=== PATIENT | male | born 1955 | race Caucasian/White ===

== ENCOUNTER 2020-10-06 06:34 | Emergency (ER) | payer BC ==
[2020-10-06 06:50] VITALS: BP 163/99; PULSE 91
--- NOTE | 2020-10-06 06:58 | EDM.PDOC ---
ED HPI GENERAL MEDICAL PROBLEM - General Chief Complaint: Abdominal Pain Stated Complaint: ABDOMINAL PAIN Time Seen by Provider: 10/06/20 06:47 Source of Information: Reports: Patient History Limitations: Reports: No Limitations - History of Present Illness INITIAL COMMENTS - FREE TEXT/NARRATIVE: 65-year-old male presents to the ED with recurrent right upper quadrant epigastric abdominal pain off and on for the last 4-1/2 days. Patient was told 15 to 18 years ago that he did have a gallstone in his gallbladder but he is never had any problems with it. Pain is worsened by eating and drinking. No associated nausea vomiting fever or chills. He relieves the pain a bit by burping and belching. Does feel distended. He has not had a bowel movement either for the last 4-1/2 days. He believes this is secondary to poor oral intake of solids. Pain radiates underneath the right costal margin and around laterally over the rib cage but it does not go underneath his shoulder blade. Patient did have some Activia this am about 0500hrs. Patient does not drink alcohol or smoke. No previous abdominal surgery. Onset: Gradual Onset Date: 10/03/20 (Has been having recurrent right upper quadrant epigastric abdominal pain off and on for the last 4-1/2 days worsened by eating) Duration: Day(s):, Getting Worse, Waxing/Waning Location: Reports: Abdomen (Epigastric discomfort. No associated nausea or vomiting.) Quality: Reports: Other (Deep aching pain occasional sharp and stabbing with eating) Severity: Moderate (right upper quadrant of the abdomen current pain is a 2 out of 10.) Improves with: Reports: None Worsens with: Reports: Eating (Drinking fluids.) Context: Denies: Activity, Exercise, Lifting, Sick Contact, Trauma, Other Associated Symptoms: Reports: Loss of Appetite. 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 (see below) (None.) Upper Abdomen Pain Score (Numeric/FACES): 3 - Related Data Allergies Allergy/AdvReac Type Severity Reaction Status Date / Time No Known Allergies Allergy Verified 10/06/20 06:49 Home Meds: Home Meds Aspirin [Farheen Chewable Aspirin] 81 mg PO DAILY 04/28/14 [History] Metoprolol Tartrate [Lopressor] 25 mg PO DAILY 04/28/14 [History] Omeprazole 20 mg PO DAILY 04/28/14 [History] atorvaSTATin Calcium [Atorvastatin Calcium] 40 mg PO DAILY 04/28/14 [History] levoFLOXacin [Levaquin] 500 mg PO DAILY #10 tab 10/06/20 [Rx] Past Medical History Cardiovascular History: Reports: High Cholesterol, Stents Gastrointestinal History: Reports: Other (See Below) Other Gastrointestinal History: gallbladder stone Genitourinary History: Reports: Other (See Below) - Past Surgical History HEENT Surgical History: Reports: Eye Surgery, LASIK Male Surgical History: Reports: Circumcision Social & Family History - Tobacco Use Tobacco Use Status *Q: Current Every Day Tobacco User Years of Tobacco use: 1 Packs/Tins Daily: 1 Used Tobacco, but Quit: Yes Month/Year Tobacco Last Used: 12 Tobacco Use Comment: pt quit for 12 years and started smoking again for 1 year - Caffeine Use Caffeine Use: Reports: Coffee - Recreational Drug Use Recreational Drug Use: No - Living Situation & Occupation Living situation: Reports: Occupation: Employed ED ROS GENERAL - Review of Systems Review Of Systems: See Below Constitutional: Reports: Decreased Appetite. Denies: Fever, Chills, Malaise, Weakness, Fatigue, Weight Loss HEENT: Reports: Glasses Respiratory: Reports: Shortness of Breath (Taking a deep breath makes the pain worse.) Cardiovascular: Reports: No Symptoms, Other (Known coronary artery disease with stent placement.) Endocrine: Reports: No Symptoms GI/Abdominal: Reports: Abdominal Pain (See history of present illness), Constipation (Problem for the last 4-1/2 days.), Decreased Appetite, Distension (Feels bloated and mildly distended.). Denies: Diarrhea, Difficulty Swallowing, Nausea, Vomiting : Reports: Frequency, Other (Nocturia x2) Musculoskeletal: Reports: Back Pain, Joint Pain Skin: Reports: No Symptoms (Occasional pain knees hips and neck .) Neurological: Reports: No Symptoms Psychiatric: Reports: No Symptoms Hematologic/Lymphatic: Reports: No Symptoms Immunologic: Reports: No Symptoms ED EXAM, GI/ABD - Physical Exam Exam: See Below Exam Limited By: No Limitations General Appearance: Alert, WD/WN, No Apparent Distress, Other (Temperature is 36.6 degrees heart rate 91 is sinus respiratory is 18 with O2 sats of 98% room air. BP mildly elevated 1 6399) Eyes: Bilateral: Normal Appearance (No scleral icterus or blepharal pallor.) Throat/Mouth: Normal Inspection, Normal Lips, Normal Oropharynx Head: Atraumatic, Normocephalic Neck: Normal Inspection, Supple, Non-Tender, Full Range of Motion. No: Carotid Bruit, Lymphadenopathy (L), Lymphadenopathy (R), Thyromegaly Respiratory/Chest: No Respiratory Distress, Lungs Clear, Normal Breath Sounds, No Accessory Muscle Use Cardiovascular: Normal Peripheral Pulses, Regular Rate, Rhythm, No Edema, No Gallop, No Murmur, No Rub GI/Abdominal Exam: Normal Bowel Sounds, Soft, No Organomegaly, No Abnormal Bruit, No Mass, Pelvis Stable, Tender (Tender spot in the left lower quadrant over the sigmoid colon which is well localized for site of pain. Query diverticulitis), Other (No surgical scars). No: Guarding (Right upper quadrant of the abdomen with a mildly positive Magana sign.), Rigid, Rebound (Male) Exam: No Hernia Back Exam: Normal Inspection, Full Range of Motion. No: CVA Tenderness (L), CVA Tenderness (R) Extremities: Normal Inspection, Normal Range of Motion, Non-Tender, No Pedal Edema Neurological: Alert, Oriented, CN II-XII Intact, Normal Cognition Psychiatric: Normal Affect, Normal Mood Skin Exam: Warm, Dry, Intact, Normal Color, No Rash Course - Vital Signs Last Recorded V/S: Last Vital Signs Temp 36.6 C 10/06/20 06:43 Pulse 91 10/06/20 06:43 Resp 18 10/06/20 06:43 BP 163/99 H 10/06/20 06:43 Pulse Ox 98 10/06/20 06:43 - Orders/Labs/Meds Orders: Active Orders 24 hr Category Date Time Status Abdomen 1V Flat [CR] Stat Exams 10/06/20 07:10 Taken Dextrose 5%-0.9% NaCl [Dextrose 5%-Normal Saline] 1,000 Med 10/06/20 07:15 Active ml IV ASDIRECTED Medication Orders Dextrose/Sodium Chloride (Dextrose 5%-Normal Saline) 1,000 mls @ 500 mls/hr IV ASDIRECTED STALIN Last Admin: 10/06/20 07:23 Dose: 500 mls/hr Documented by: [email or web address] Labs: Laboratory Tests 10/06/20 10/06/20 Range/Units 07:25 07:25 WBC 11.97 H (4.23-9.07) K/mm3 RBC 5.40 (4.63-6.08) M/mm3 Hgb 15.3 (13.7-17.5) gm/dl Hct 45.1 (40.1-51.0) % MCV 83.5 (79.0-92.2) fl MCH 28.3 (25.7-32.2) pg MCHC 33.9 (32.2-35.5) g/dl RDW Std Deviation 41.2 (35.1-43.9) fL Plt Count 223 (163-337) K/mm3 MPV 10.4 (9.4-12.3) fl Neut % (Auto) 81.3 H (34.0-67.9) % Lymph % (Auto) 10.5 L (21.8-53.1) % Runnels % (Auto) 6.9 (5.3-12.2) % Eos % (Auto) 0.8 (0.8-7.0) Baso % (Auto) 0.2 (0.1-1.2) % Neut # (Auto) 9.74 H (1.78-5.38) K/mm3 Lymph # (Auto) 1.26 L (1.32-3.57) K/mm3 Runnels # (Auto) 0.83 H (0.30-0.82) K/mm3 Eos # (Auto) 0.09 (0.04-0.54) K/mm3 Baso # (Auto) 0.02 (0.01-0.08) K/mm3 Sodium 139 (136-145) mEq/L Potassium 3.6 (3.5-5.1) mEq/L Chloride 100 (98-107) mEq/L Carbon Dioxide 27 (21-32) mEq/L Anion Gap 15.6 H (5-15) BUN 13 (7-18) mg/dL Creatinine 0.8 (0.7-1.3) mg/dL Est Cr Clr Drug Dosing TNP Estimated GFR (MDRD) > 60 (>60) mL/min BUN/Creatinine Ratio 16.3 (14-18) Glucose 107 (80-115) mg/dL Calcium 9.1 (8.5-10.1) mg/dL Total Bilirubin 0.4 (0.2-1.0) mg/dL GGT 21 (15-85) U/L AST 14 L (15-37) U/L ALT 24 (16-63) U/L Alkaline Phosphatase 65 (46-116) U/L C-Reactive Protein 10.9 H* (<1.0) mg/dL Total Protein 7.8 (6.4-8.2) g/dl Albumin 3.1 L (3.4-5.0) g/dl Globulin 4.7 gm/dL Albumin/Globulin Ratio 0.7 L (1-2) Lipase 45 L (73-393) U/L Meds: Medications Generic Name Dose Route Start Last Admin Trade Name Freq PRN Reason Stop Dose Admin Dextrose/Sodium Chloride 1,000 mls @ 500 mls/hr 10/06/20 07:15 10/06/20 07:23 Dextrose 5%-Normal Saline IV 500 mls/hr ASDIRECTED STALIN Administration Discontinued Medications Generic Name Dose Route Start Last Admin Trade Name Freq PRN Reason Stop Dose Admin Hyoscyamine 0.125 mg 10/06/20 07:09 10/06/20 07:23 Hyoscyamine 0.125 Mg Tab.Sl SL 10/06/20 07:10 0.125 mg ONETIME ONE Administration Magnesium Citrate 210 ml 10/06/20 07:46 10/06/20 07:58 Magnesium Citrate Solution 296 Ml Bottle PO 10/06/20 07:47 210 ml ONETIME ONE Administration - Radiology Interpretation Free Text/Narrative:: 65-year-old male presents to the ED due to recurrent right upper quadrant epigastric abdominal pain off and on for the last 4/2 days. It is worsened by eating and drinking fluids. Is also not had a bowel move for the last 4-1/2 days. Feels bloated. Pain is partially relieved by burping belching. Examination reveals bowel sounds to be infrequent throughout the abdomen. Mildly diffusely tympany to percussion. He is tender right upper quadrant of the abdomen with a mildly positive Magana sign. Plan IV D5 normal saline at 500 mils an hour Levsin 0.125 mg sublingual. Routine labs CBC, CMP, GGT, lipase and CRP to be done. One view the abdomen x-ray will be done. Since he ate 2 hours ago I will do a bedside ultrasound on his gallbladder. - Re-Assessments/Exams Free Text/Narrative Re-Assessment/Exam: 10/06/20 07:28 Bedside ultrasound reveals gallbladder to appear normal without thickened alejo and no stones or sludge evident within the gallbladder. Common bile duct also appeared to be within normal limits. 10/06/20 07:47 White count is slightly elevated at 11.97 does have a mild left shift with 81.3% neutrophils. Hemoglobin is 15.3 with hematocrit of 45.1 platelet counts 223,000. KUB has been completed and reveals increased stool throughout the entire right hemicolon and hepatic flexure of the transverse colon. Increase stool scattered throughout the transverse colon and the splenic flexure. The descending colon and rectal vault are empty of stool. There is increased air throughout the left hemicolon causing some degree of distention. There is no bowel obstruction. Plan he will be given magnesium citrate 7 ounces by mouth mixed with 6 to 7 ounces of Gatorade to provide bowel cleanse. 10/06/20 08:16 Sodium is 139 with a potassium of 3.6. Chloride is 100 with a bicarb of 27. Anion gap is mildly elevated at 15.6. BUN is 13 with a creatinine of 0.8 and a GFR greater than 60. Glucose 107. Calcium is 9.1. Bilirubin is 0.4 GGT is 21 AST is 14 ALT is 24 alkaline phosphatase is 65 C- reactive protein is 10.9 suggesting an underlying infective process. Total protein is 7.8 with an albumin fraction low at 3.1 lipase is 45. Therefore with elevated white count left shift and an elevated CRP it is suspect that he has early mild diverticulitis. Repeat abdominal examination definitely reveals no peritoneal signs. He remains afebrile as well. The plan will be to place him on Levaquin 500 mg once daily for the next 10 days to clear up any infection. Departure - Departure Time of Disposition: 08:21 Disposition: Home, Self-Care 01 Condition: Fair Clinical Impression: Constipation by delayed colonic transit Abdominal pain Qualifiers: Abdominal location: left lower quadrant Qualified Code(s): R10.32 - Left lower quadrant pain Diverticulitis large intestine Qualifiers: Diverticulitis bleeding: without bleeding Diverticulitis complication: unspecified complication status Qualified Code(s): K57.32 - Diverticulitis of large intestine without perforation or abscess without bleeding - Discharge Information *PRESCRIPTION DRUG MONITORING PROGRAM REVIEWED*: Not Applicable *COPY OF PRESCRIPTION DRUG MONITORING REPORT IN PATIENT GIOVANNA: Not Applicable Prescriptions: levoFLOXacin [Levaquin] 500 mg PO DAILY #10 tab Instructions: Diverticulitis, [id number], Constipation, Adult Referrals: PCP,None [Primary Care Provider] - Forms: ED Department Discharge Additional Instructions: Evaluation in the emergency room this morning due to recurrent right upper quadrant epigastric abdominal discomfort as well as left lower quadrant abdominal pain for the last 4-1/2 days. No associated noted fever chills nausea or vomiting. Pain is worsened by eating. Bedside ultrasound reveals a normal- appearing gallbladder without thickening of the gallbladder wall with no stones identified. Lab test also revealed no evidence of liver pancreas or gallbladder dysfunction. It lab test did reveal a mildly elevated white count suggesting an underlying infective process and the CRP is elevated at 10.9 which is indicative of an underlying bacterial infection. It is felt that on examination the tenderness in the left lower quadrant of the abdomen is likely the culprit in terms of causing pain and elevated white count. This infection is called diverticulitis. Well-developed diverticuli of the colon at about age 65 almost 100% of the population has some degree of diverticuli. He is a little pouches that form in the outside of the bowel over time. Infection occurs when one of the diverticuli become obstructed by food product that we cannot digest such as knots, sesame seeds, raspberry seeds popcorn etc. The x-ray of the abdomen revealed increased stool throughout the right hemicolon and portions of the transverse colon in the right upper quadrant which I think is causing your right upper quadrant abdominal pain. Treatment is magnesium citrate started in the emergency room to cleanse the bowel. This will likely make your bowels move 3 or 4 times this morning. You will need to take an antibiotic Levaquin 500 mg once daily for the next 10 days to clear up diverticulitis infection. May use Motrin 600 mg every 6 hours if needed for pain relief. Return to the hospital if you develop severe fever, chills or nausea vomiting. Pain should improve over the next 3 days in the left lower quadrant of the abdomen. Sepsis Event Note (ED) - Evaluation Sepsis Screening Result: No Definite Risk - Focused Exam Vital Signs: Vital Signs Temp Pulse Resp BP Pulse Ox 10/06/20 06:43 36.6 C 91 18 163/99 H 98 - My Orders Last 24 Hours: My Active Orders 10/06/20 07:10 Abdomen 1V Flat [CR] Stat 10/06/20 07:15 Dextrose 5%-0.9% NaCl [Dextrose 5%-Normal Saline] 1,000 ml IV ASDIRECTED - Assessment/Plan Last 24 Hours: My Active Orders 10/06/20 07:10 Abdomen 1V Flat [CR] Stat 10/06/20 07:15 Dextrose 5%-0.9% NaCl [Dextrose 5%-Normal Saline] 1,000 ml IV ASDIRECTED
[2020-10-06] MEDS ORDERED: Hyoscyamine 0.125 MG Tab.SL SL ONE (07:09)
[2020-10-06] MEDS ORDERED: Dextrose 5%-0.9% NaCl 1,000 ML IV SCH (07:15)
[2020-10-06] MEDS ORDERED: Magnesium Citrate Solution 296 ML Bottle PO ONE (07:46)
--- NOTE | 2020-10-06 08:45 | CR ---
Abdomen: Supine view of the abdomen was obtained. Comparison: No previous studies available. Slight degenerative change is seen within the spine. Bowel gas pattern appears normal. No soft tissue abnormality is appreciated. Impression: 1. Nothing acute is seen on supine abdominal x-ray. Diagnostic code #1
== END 2020-10-06 08:37 | disposition home or self-care (01) ==
LOC: JD.ED 06:34
DX: K59.01 Slow transit constipation (principal); K57.32 Diverticulitis of large intestine without perforation or abscess without bleeding; D72.829 Elevated white blood cell count, unspecified; E78.00 Pure hypercholesterolemia, unspecified; Z72.0 Tobacco use; Z79.82 Long term (current) use of aspirin; Z79.899 Other long term (current) drug therapy
CPT/HCPCS: 36415; 74018; 80053; 82977; 83690; 85025; 86140; 99284; A9270; J7042